=== PATIENT | male | born 1955 | race Caucasian/White ===

== ENCOUNTER → 2018-07-10 | Outpatient (CLI) | payer MEDICARE ==
[~2018-07-10] MED LIST: IOPAMIDOL 370 MG/ML 200 ML INFUS..BTL INJ ONE; SODIUM CHLORIDE 0.9% 50ML 50 ML ONE
[2018-07-10 08:54] LABS: BLOOD UREA NITROGEN 13 mg/dL (7-26); BUN/CREATININE RATIO 14 (6-25); CREATININE, SERUM 0.91 mg/dL (0.72-1.25); EST GLOMERULAR FILTRATION RATE > 60 ML/MIN (60-)
--- NOTE | 2018-07-11 09:34 | Diagnostic Imaging Report ---
PROCEDURE: CT ABDOMEN AND PELVIS WITH CONTRAST TECHNIQUE: The abdomen and pelvis were scanned utilizing a multidetector helical scanner from the diaphragm to the lesser trochanter after the IV administration of 100 cc Isovue 370 and the oral administration of water. Coronal and sagittal multiplanar reformations were obtained. COMPARISON: None. INDICATIONS: DIARRHEA, endoscopy report describes rectal mass FINDINGS: LOWER THORAX: Trace subsegmental atelectasis in the dependent portions of the lower lobes. 4 mm nodule lateral segment right lower lobe seen on series 2 image 3. HEPATOBILIARY: No focal hepatic lesion or intrahepatic biliary ductal dilatation. Subcapsular focus of hyperattenuation in the inferior most aspect of segment 6 likely represents a vascular shunt. The gallbladder is incompletely distended but otherwise unremarkable. SPLEEN: No splenomegaly. PANCREAS: No focal masses or ductal dilatation. ADRENALS: No adrenal nodules. KIDNEYS/URETERS: Bilateral lobulated renal contours may be congenital or post infectious. 1.3 cm partially exophytic left renal nodule has approximate equivalent attenuation to the adjacent renal cortex, best appreciated on coronal image 71. No additional focal renal lesion. No hydronephrosis. No calculi. PELVIC ORGANS/BLADDER: The urinary bladder is incompletely distended but otherwise unremarkable. The prostate is enlarged measuring 5.7 cm transversely, with mass effect upon the bladder base. Seminal vesicles appear normal. PERITONEUM / RETROPERITONEUM: No ascites. No pneumoperitoneum. LYMPH NODES: No pelvic sidewall, retroperitoneal, or mesenteric lymphadenopathy. VESSELS: The atherosclerotic calcification of the abdominal aorta, major branch vessels, and iliac arterial systems without aneurysmal dilatation.. The portal vein, splenic vein, and central superior mesenteric vein are patent. GI TRACT: Concentric rectal mass lesion with luminal narrowing measures approximately 5.5 cm in AP by 5.1 cm transverse as seen on series 2 image 69. More proximally, the large bowel shows no distention or wall thickening. Gas and fecal material are noted throughout. No small bowel dilatation to suggest obstruction. BONES AND SOFT TISSUES: No osseous destructive lesions. Mild multilevel degenerative disc changes. No focal soft tissue abnormalities.. IMPRESSION: 5.5 cm enhancing annular rectal mass with associated luminal narrowing but no evidence of upstream bowel dilatation to suggest obstruction. Findings are highly concerning for rectal adenocarcinoma. Included endoscopy report notes a rectal mass status post biopsy. Pathologic correlation is suggested. No CT findings to suggest intra-abdominal or pelvic metastatic disease. 1.3 cm hyperattenuating exophytic nodule projecting from the posterior left kidney may represent isolated cortical tissue given extensive bilateral renal lobulations. However, MRI abdomen with and without contrast (renal mass protocol) is suggested to exclude enhancing renal mass. 3 mm right lower lobe pulmonary nodule is indeterminate in the setting of a rectal mass. Dedicated CT scan of the chest is suggested for further evaluation. Atherosclerotic vascular disease. Dictated by: Javan Weinstein M.D. on 07/11/2018 at 9:43 Electronically approved by: Javan Weinstein M.D. on 07/11/2018 at 9:43
== END ==
LOC: EDBD 08:00 → CT 08:00
PROVIDERS: ATTEND Internal Medicine Gastroenterology
DX: Z12.11 Encounter for screening for malignant neoplasm of colon (principal); R19.7 Diarrhea, unspecified; K44.9 Diaphragmatic hernia without obstruction or gangrene; K29.70 Gastritis, unspecified, without bleeding; K31.7 Polyp of stomach and duodenum; D12.4 Benign neoplasm of descending colon; D12.3 Benign neoplasm of transverse colon; D12.2 Benign neoplasm of ascending colon
CPT/HCPCS: 36415; 74177; 82565; 84520; Q9967

== ENCOUNTER 2024-07-05 17:55 | Emergency (ER) | payer MEDICARE ==
[~2024-07-05] VITALS: Ht 175.3 cm; Wt 63.5 kg
[~2024-07-05 17:55] MED LIST changes: +AMLODIPINE BESYL5 MG PO; +HYDROCHLOROTHIA25 MG PO; -IOPAMIDOL 370 MG/ML 200 ML INFUS..BTL INJ ONE; +LOSARTAN POTAS100 MG PO; +PRAVASTATIN SOD20 MG PO; -SODIUM CHLORIDE 0.9% 50ML 50 ML ONE; +TRADJENTA5 MG PO; +WARFARIN SODIUM3 MG PO
[2024-07-05 19:33] VITALS: PULSE 75; RESP 18; TEMP 97.8
[2024-07-05 19:58] LABS: BASOPHILS % 0.2 % (0.0-1.0); EOSINOPHILS # (AUTO) 0.2 (0.0-0.4); EOSINOPHILS % 1.5 % (0.0-6.0); HEMOGLOBIN 11.3 g/dL (14.0-18.0); LYMPHOCYTES # (AUTO) 1.6 (1.0-3.2); LYMPHOCYTES % 14.2 % (18.0-39.1); MEAN CORPUSCULAR HEMOGLOBIN 28.2 pg (28-32); MEAN CORPUSCULAR HGB CONC 32.3 g/dL (31-35); MEAN CORPUSCULAR VOLUME 87.3 fL (81-99); MONOCYTES # (AUTO) 0.9 (0.2-0.8); MONOCYTES % 8.4 % (4.4-11.3); NEUTROPHILS # (AUTO) 8.2 (2.1-6.9); NEUTROPHILS % 74.3 % (38.7-80.0); PLATELET COUNT 419 x10e3/uL (140-360); RED BLOOD COUNT 4.01 x10e6/uL (4.3-5.7); RED CELL DISTRIBUTION WIDTH 15.8 % (11.7-14.4); WHITE BLOOD COUNT 11.01 x10e3/uL (4.8-10.8)
[2024-07-05 20:18] LABS: ALBUMIN 2.7 g/dL (3.5-5.0); ALBUMIN/GLOBULIN RATIO 0.8 (0.8-2.0); ANION GAP 15.8 mmol/L (8-16); BILIRUBIN,TOTAL 0.3 mg/dL (0.2-1.2); CALCIUM 9.4 mg/dL (8.4-10.2); CREATININE, SERUM 0.77 mg/dL (0.72-1.25); POTASSIUM 4.8 mmol/L (3.5-5.1); TOTAL PROTEIN 6.3 g/dL (6.5-8.1)
[2024-07-05] MEDS ORDERED: IOPAMIDOL 370 MG/ML 100 ML INFUS..BTL INJ ONE (20:35)
[2024-07-05 22:21] VITALS: BP 125/63; O2SAT 100
[2024-07-05 23:20] LABS: BILIRUBIN,URINE NEGATIVE (NEGATIVE); CLARITY,URINE SL CLOUDY (CLEAR); COLOR,URINE YELLOW (YELLOW); GLUCOSE, URINE NEGATIVE (NEGATIVE); KETONES,URINE 2+ (NEGATIVE); LEUKOCYTE ESTERASE ,URINE NEGATIVE (NEGATIVE); NITRITE,URINE NEGATIVE (NEGATIVE); PH,URINE 5.5 (5 - 7); PROTEIN,URINE DIPSTICK NEGATIVE (NEGATIVE); URINE UROBILINOGEN 0.2 mg/dL (0.2 - 1)
[2024-07-05] MEDS ORDERED: AMOX TR-K CLV1 EAC2 PO (23:42)
[2024-07-05 23:52] LABS: RBC,URINE >50 /HPF (0-5)
[2024-07-05 23:53] LABS: BACTERIA,URINE MANY /HPF; EPITHELIAL CELLS,URINE FEW /LPF
== END 2024-07-05 22:14 | disposition home or self-care (01) ==
LOC: ER 18:08
DX: N40.1 Benign prostatic hyperplasia with lower urinary tract symptoms (principal); R33.8 Other retention of urine; E11.65 Type 2 diabetes mellitus with hyperglycemia; I10 Essential (primary) hypertension; Z98.0 Intestinal bypass and anastomosis status
CPT/HCPCS: 36415; 51702; 74177; 80053; 81001; 83690; 85025; 87086; 99283; Q9967; 51700

== ENCOUNTER 2024-07-16 20:16 | Emergency (ER) | payer MEDICARE ==
[~2024-07-16] VITALS: Ht 175.3 cm; Wt 63.5 kg
[~2024-07-16 20:16] MED LIST changes: +AMOX TR-K CLV1 EAC2 PO
[2024-07-16 20:36] VITALS: TEMP 98.3
[2024-07-16] MEDS ORDERED: SODIUM CHLORIDE 0.9% 1000ML 1,000 ML IV STA (20:41)
[2024-07-16 21:22] LABS: BILIRUBIN,URINE NEGATIVE (NEGATIVE); CLARITY,URINE CLOUDY (CLEAR); COLOR,URINE RED (YELLOW); GLUCOSE, URINE 500 (NEGATIVE); KETONES,URINE NEGATIVE (NEGATIVE); LEUKOCYTE ESTERASE ,URINE NEGATIVE (NEGATIVE); PH,URINE 5.5 (5 - 7); PROTEIN,URINE DIPSTICK 2+ (NEGATIVE); URINE UROBILINOGEN 0.2 mg/dL (0.2 - 1)
[2024-07-16 21:29] VITALS: PULSE 71; RESP 16
[2024-07-16] MEDS ORDERED: AUGMENTIN 500-1 EACH PO (21:32)
[2024-07-16 21:34] LABS: NITRITE,URINE NEGATIVE (NEGATIVE)
[2024-07-16 21:36] LABS: BACTERIA,URINE MODERATE /HPF; RBC,URINE 21-50 /HPF (0-5); WBC,URINE (MAN) 0-5 /HPF (0-5); YEAST,URINE FEW
[2024-07-16 22:08] VITALS: BP 128/63; PULSE 71; RESP 16; TEMP 98.3; O2SAT 100
== END 2024-07-16 21:56 | disposition home or self-care (01) ==
LOC: ER 20:23
DX: R33.9 Retention of urine, unspecified (principal); R31.9 Hematuria, unspecified; R30.0 Dysuria; I10 Essential (primary) hypertension; E11.9 Type 2 diabetes mellitus without complications
CPT/HCPCS: 51700; 81001; 87086; 99283